=== PATIENT | male | born 1980 ===

== ENCOUNTER 2016-12-19 08:22 | Emergency (ER) | payer OTHER ==
--- NOTE | 2016-12-19 08:49 | UC ---
Throat Pain/Nasal Kofi HPI - HPI Summary HPI Summary: sore throat, cough, nasal congestion x 5 days. Daughter had swab proven influenza, but pt states he does not think he has the flu. No fever, no muscle aches. - History of Current Complaint Chief Complaint: UCRespiratory Stated Complaint: SINUS,SORE THROAT Time Seen by Provider: 12/19/16 08:48 Hx Obtained From: Patient Onset/Duration: Gradual Onset, Lasting Days, Still Present Severity: Moderate Pain Intensity: 4 Pain Scale Used: 0-10 Numeric Cough: Sputum Appears - yellow Associated Signs & Symptoms: Positive: Dysphagia, Sinus Discomfort, Nasal Discharge. Negative: Fever - Allergies/Home Medications Allergies/Adverse Reactions: Allergies Allergy/AdvReac Type Severity Reaction Status Date / Time hay fever Allergy Sneezing Uncoded 12/19/16 08:35 Home Medications: Home Medications Ascorbic Acid TAB* [Vitamin C TAB*] 1,000 mg PO DAILY 12/19/16 [History Confirmed 12/19/16] Cyanocobalamin TAB* [Vitamin B12 TAB*] 500 mcg PO DAILY 12/19/16 [History Confirmed 12/19/16] Multivitamins/Minerals TAB* [Thera M Plus TAB*] 1 tab PO DAILY 12/19/16 [ History Confirmed 12/19/16] Pseudoephedrine HCl [Sudafed 12 Hour] 120 mg PO ONCE PRN 12/19/16 [History Confirmed 12/19/16] PMH/Surg Hx/FS Hx/Imm Hx Previously Healthy: Yes - Surgical History Surgical History: Yes Surgery Procedure, Year, and Place: b/l scaphoid-unate repairs, t/a - Family History Known Family History: Positive: Cardiac Disease - grandfather with [place] - Social History Occupation: Employed Full-time Alcohol Use: Weekly Alcohol Amount: 4-5 Substance Use Type: None Smoking Status (MU): Never Smoked Tobacco Review of Systems Constitutional: Negative Skin: Negative Eyes: Negative ENT: Sore Throat Respiratory: Cough Cardiovascular: Negative Gastrointestinal: Negative Genitourinary: Negative Motor: Negative Neurovascular: Negative Musculoskeletal: Negative Neurological: Negative Psychological: Negative All Other Systems Reviewed And Are Negative: Yes Physical Exam Triage Information Reviewed: Yes Appearance: Well-Appearing, Well-Nourished, Pain Distress Vital Signs: Initial Vital Signs Temp 98.1 F 12/19/16 08:27 Pulse 66 12/19/16 08:27 Resp 18 12/19/16 08:27 BP 141/82 12/19/16 08:27 Pulse Ox 99 12/19/16 08:27 Vital Signs Reviewed: Yes Eyes: Positive: Conjunctiva Clear ENT: Positive: Hearing grossly normal, Pharyngeal erythema, TMs normal Neck: Positive: Supple, Nontender, No Lymphadenopathy Respiratory: Positive: Lungs clear, Normal breath sounds, No respiratory distress Cardiovascular: Positive: RRR, No Murmur, Pulses Normal, Brisk Capillary Refill Musculoskeletal: Positive: Strength Intact, ROM Intact Neurological: Positive: Alert, Muscle Tone Normal Psychological Exam: Normal Skin Exam: Normal Throat Pain/Nasal Course/Dx - Course Course Of Treatment: rapid A neg. Will not test for flu as pt states he does not think he has it, and also he is outside the window for tamiflu and not in a high risk group. - Differential Dx/Diagnosis Differential Diagnosis/HQI/PQRI: Influenza, Otitis Media, Pharyngitis, URI Provider Diagnoses: upper respiratory infection. acute cough Discharge - Discharge Plan Condition: Stable Disposition: HOME Prescriptions: Azithromycin TAB* [Zithromax TAB (Z-CHONG) 250 mg #6 tabs] 2 tab PO .TODAY, THEN 1 DAILY #1 chong Patient Education Materials: Pharyngitis (ED), Upper Respiratory Infection (ED) Additional Instructions: Your strep test was negative. Dr. Casanova sent the antibiotic but you do not need to take it unless you feel your symptoms are worsening. She recommends and agrees with you that mucinex (guaifenesin) is good treatment for the cough. Return to urgent care if any new or worsening symptoms.
== END 2016-12-19 09:57 | disposition home or self-care (01) ==
LOC: UCCORT 08:22
DX: J06.9 Acute upper respiratory infection, unspecified (principal)
CPT/HCPCS: 87651; 99202; G0463